=== PATIENT | female | born 1970 | race Caucasian/White ===

== ENCOUNTER 2018-02-12 21:01 | Emergency (ER) | payer MEDICAID, OTHER ==
[~2018-02-12] VITALS: Ht 167.6 cm; Wt 80.9 kg
[~2018-02-12 21:01] MED LIST: ALBU6.7H INH; COROTSUS LEFT EAR; METH4TAB3 PO; NO HOME MEDS
[2018-02-12 22:44] LABS: BASOPHILS # (AUTO) 0.1 X10'3 (0-0.2); BASOPHILS % (AUTO) 0.9 % (0-1); EOSINOPHILS # (AUTO) 0.2 X10'3 (0-0.9); EOSINOPHILS % (AUTO) 1.9 % (0-6); HEMATOCRIT 45.2 % (35.0-45.0); HEMOGLOBIN 15.4 g/dl (12.0-16.0); LYMPHOCYTES % (AUTO) 28.1 % (21-51); MEAN CORPUSCULAR HEMOGLOBIN 29.8 PG (27.0-31.0); MEAN CORPUSCULAR VOLUME 87.7 FL (78-98); MEAN PLATELET VOLUME 8.8 FL (7.4-10.4); MONOCYTES # (AUTO) 0.6 X10'3 (0-0.9); MONOCYTES % (AUTO) 5.7 % (2-12); NEUTROPHILS # (AUTO) 6.7 X10'3 (1.8-7.7); NEUTROPHILS % (AUTO) 63.4 % (42-75); PLATELET COUNT 208 X10'3 (140-440); RED BLOOD COUNT 5.15 X10'6 (4.20-5.60); RED CELL DISTRIBUTION WIDTH 13.3 % (11.5-14.5); WHITE BLOOD COUNT 10.6 X10'3 (4.5-11.0)
[2018-02-12] MEDS ORDERED: ipratropium/albuterol 3ml nebule NEB ONE (22:50)
[2018-02-12 23:07] LABS: ALANINE AMINOTRANSFERASE 98 U/L (12-78); ALBUMIN 3.4 G/DL (3.4-5.0); ALBUMIN/GLOBULIN RATIO 0.9 (1.1-1.5); ALKALINE PHOSPHATASE 120 IU/L (46-116); ANION GAP 8 (8-16); ASPARTATE AMINO TRANSFERASE 40 U/L (10-37); BILIRUBIN,TOTAL 0.3 MG/DL (0.1-1.0); BLOOD UREA NITROGEN 10 MG/DL (7-18); BUN/CREATININE RATIO 9.1 (6.6-38.0); CALCIUM 9.1 MG/DL (8.5-10.1); CHLORIDE 105 MMOL/L (99-107); GLUCOSE 98 MG/DL (70-104); POTASSIUM 4.1 MMOL/L (3.5-5.1); SODIUM 142 MMOL/L (135-145); TOTAL CARBON DIOXIDE 28.7 MMOL/L (24-32); TOTAL PROTEIN 7.3 G/DL (6.4-8.2); eGFR 53 ML/MIN
[2018-02-12] MEDS ORDERED: FLUT1DIS4 INH (23:20)
[2018-02-12] MEDS ORDERED: ALBU8.5H8 IH (23:20)
[2018-02-12] MEDS ORDERED: furosemide 20MG tablet PO ONE (23:20)
[2018-02-12 23:29] VITALS: BP 146/103
== END 2018-02-12 23:47 | disposition home or self-care (01) ==
LOC: ER 21:02
DX: I50.9 Heart failure, unspecified (principal); J44.1 Chronic obstructive pulmonary disease with (acute) exacerbation; F17.200 Nicotine dependence, unspecified, uncomplicated; F12.10 Cannabis abuse, uncomplicated; F15.10 Other stimulant abuse, uncomplicated; Z88.5 Allergy status to narcotic agent
CPT/HCPCS: 36415; 71045; 80053; 83880; 84484; 85025; 93005; 94640; 94760; 99285

== ENCOUNTER 2018-07-08 09:20 | Emergency (ER) | payer MEDICAID ==
[~2018-07-08] VITALS: Ht 167.6 cm; Wt 87.0 kg
[~2018-07-08 09:20] MED LIST changes: +ALBU8.5H8 IH; +AZIT500T5 PO; +FLUT1DIS INH; +FLUT1DIS4 INH
[2018-07-08 09:31] VITALS: BP 138/90
[2018-07-08] MEDS ORDERED: ALBU8.5H8 IH (10:05)
[2018-07-08] MEDS ORDERED: AZIT250T PO (10:05)
== END 2018-07-08 10:25 | disposition home or self-care (01) ==
LOC: ER 09:20
DX: J40 Bronchitis, not specified as acute or chronic (principal); I50.9 Heart failure, unspecified; J44.9 Chronic obstructive pulmonary disease, unspecified; F12.10 Cannabis abuse, uncomplicated; F15.10 Other stimulant abuse, uncomplicated; Z87.891 Personal history of nicotine dependence; Z88.6 Allergy status to analgesic agent
CPT/HCPCS: 71045; 99283

== ENCOUNTER 2018-10-24 17:11 | Emergency (ER) | payer MEDICAID ==
[~2018-10-24 17:11] MED LIST changes: +NORepinephrine bitartrate 8 MG in NS 250 ML BAG (32 mcg/ml) IV ONE; +calcium chloride 100 MG/1 ML inj IV ONE; +sodium bicarbonate (8.4%) 1 mEq/ml syringe ONE
[2018-10-24] MEDS ORDERED: vasoPRESSIN 20 units/ml inj. IV ONE ×2 (17:20→18:20)
[2018-10-24 17:29] LABS: BASOPHILS # (AUTO) 0.1 X10'3 (0-0.2); BASOPHILS % (AUTO) 0.6 % (0-1); EOSINOPHILS # (AUTO) 0.3 X10'3 (0-0.9); EOSINOPHILS % (AUTO) 3.1 % (0-6); HEMATOCRIT 43.6 % (35.0-45.0); HEMOGLOBIN 13.7 g/dl (12.0-16.0); LYMPHOCYTES # (AUTO) 4.1 X10'3 (1.1-4.8); LYMPHOCYTES % (AUTO) 38.1 % (21-51); MEAN CORPUSCULAR HEMOGLOBIN 28.8 PG (27.0-31.0); MEAN CORPUSCULAR HGB CONC 31.5 % (33.0-36.5); MEAN CORPUSCULAR VOLUME 91.5 FL (78-98); MONOCYTES # (AUTO) 0.8 X10'3 (0-0.9); MONOCYTES % (AUTO) 7.2 % (2-12); NEUTROPHILS # (AUTO) 5.6 X10'3 (1.8-7.7); PLATELET COUNT 117 X10'3 (140-440); RED BLOOD COUNT 4.76 X10'6 (4.20-5.60); RED CELL DISTRIBUTION WIDTH 16.4 % (11.5-14.5); WHITE BLOOD COUNT 10.9 X10'3 (4.5-11.0)
[2018-10-24] MEDS ORDERED: sodium bicarbonate 1 MEQ/1 ml inj ONE (17:30)
[2018-10-24] MEDS ORDERED: epiNEPHrine 0.1mg/ml 10ml syringe ONE (17:30)
[2018-10-24] MEDS ORDERED: magnesium 2GM in 50ml NS 50 ML IV ONE (17:32)
[2018-10-24 17:33] LABS: CLARITY,URINE CLOUDY (Clear); COLOR,URINE YELLOW (Yellow); GLUCOSE, URINE NEGATIVE (Neg); KETONES,URINE NEGATIVE (Neg); LEUKOCYTE ESTERASE ,URINE NEGATIVE (Neg); NITRITES, URINE NEGATIVE (Neg); OCCULT BLOOD,URINE NEGATIVE (Neg); PH,URINE 5.5 (4.8-8.0); PROTEIN,URINE 100 mg/dl (Neg); UROBILINOGEN,URINE 0.2 E.U/dL (0.2-1.0)
[2018-10-24] MEDS ORDERED: magnesium 1 GM/2 ML inj ONE (17:34)
[2018-10-24 17:35] LABS: UA COLLECTION TYPE CLN CATCH MIDSTREAM
[2018-10-24 17:45] LABS: INR 1.2 INR; PARTIAL THROMBOPLASTIN TIME 31 SECONDS (22-32)
[2018-10-24 17:48] LABS: MUCUS STRANDS FEW /LPF (Neg); SQUAMOUS EPITHELIAL CELL,UR MANY /LPF (FEW)
[2018-10-24 17:50] LABS: ALANINE AMINOTRANSFERASE 21 U/L (12-78); ALBUMIN 2.6 G/DL (3.4-5.0); ALBUMIN/GLOBULIN RATIO 0.8 (1.1-1.5); ALKALINE PHOSPHATASE 151 IU/L (46-116); ANION GAP 17 (8-16); ASPARTATE AMINO TRANSFERASE 26 U/L (10-37); BILIRUBIN,TOTAL 0.5 MG/DL (0.1-1.0); BLOOD UREA NITROGEN 12 MG/DL (7-18); BUN/CREATININE RATIO 8.5 (6.6-38.0); CHLORIDE 107 MMOL/L (99-107); CREATININE 1.41 MG/DL (0.40-0.90); GLUCOSE 255 MG/DL (70-104); POTASSIUM 3.7 MMOL/L (3.5-5.1); SODIUM 146 MMOL/L (135-145); TOTAL CARBON DIOXIDE 21.9 MMOL/L (24-32); TOTAL PROTEIN 5.9 G/DL (6.4-8.2); eGFR 40 ML/MIN
[2018-10-24 17:52] LABS: CALCIUM 13.2 MG/DL (8.5-10.1)
[2018-10-24 17:55] LABS: BACTERIA,URINE FEW /HPF (Neg); RBC,URINE 0-2 /HPF (0-2); WBC,URINE 0-4 /HPF (0-4)
[2018-10-24 17:56] LABS: AMORPHOUS URATES 2+; TRANSITIONAL EPI CELLS,URINE FEW /HPF
[2018-10-24 18:06] LABS: ABG HCO3 17.3 mmol/L (22.0-26.0); ABG PCO2 (T) 59.3 mmHg (32.0-45.0); ABG PH (T) 7.082 (7.350-7.450); ABG PO2 (T) 135.8 mmHg (83-108); ALLEN'S TEST Negative; FCOHb 0.8 % (0.5-1.5); FLOW 15 L/min; FMetHb 0.2 % (0.3-1.12); TOTAL HEMOGLOBIN 13.3 G/dl (12.0-16.0)
== END 2018-10-24 21:06 | disposition expired ==
LOC: ER 17:12
DX: I46.9 Cardiac arrest, cause unspecified (principal); I50.9 Heart failure, unspecified; J44.9 Chronic obstructive pulmonary disease, unspecified; F12.90 Cannabis use, unspecified, uncomplicated; F15.90 Other stimulant use, unspecified, uncomplicated; Z88.5 Allergy status to narcotic agent; Z79.899 Other long term (current) drug therapy
CPT/HCPCS: 31500; 36415; 36556; 36600; 80053; 81001; 82803; 82948; 83605; 84145; 84484; 85018; 85025; 85610; 85730; 87040; 87077; 87186; 92950; 99291; J0171; J3475; J3490